=== PATIENT | female | born 1990 | race Caucasian/White ===

== ENCOUNTER 2024-05-09 08:54 | Emergency (ER) | payer BC, SELFPAY ==
[2024-05-09] VITALS (10 sets, daily range): BP systolic 122–140; BP diastolic 85–93; PULSE 68–93; RESP 15–19; TEMP 36.7; O2SAT 99–100
--- NOTE | ~2024-05-09 | US_ITS ---
EXAMINATION: US OB transvaginal DATE: 05/09/2024 10:59 INDICATION: Right lower quadrant abdominal pain. TECHNIQUE: Real-time transvaginal pelvic ultrasound was performed. COMPARISON: None. FINDINGS: The uterus measures 7.1 x 3.5 x 4.6 cm. There is no visible intrauterine gestational sac. The endomet rial complex measures 8 mm in thickness. The right ovary measures 3.2 x 1.7 x 2.2 cm. The left ovary measures 3.2 x 1.5 x 1.7 cm. There is normal vascular flow in the ovaries. There is trace free fluid in the pelvis. IMPRESSION: 1. No visible intrauterine gestational sac, which may be normal in early . Ectopic pregnanc y and spontaneous are not excluded. Correlate with serial beta-hCGs. Reviewed, dictated and finalized at location A. IMPRESSION: 1. No visible intrauterine gestational sac, which may be normal in early pregn bharti. Ectopic and spontaneous are not excluded. Correlate wi th serial beta-hCGs.
--- NOTE | ~2024-05-09 | CT_ITS ---
EXAMINATION: CT abdomen pelvis w con DATE: 05/09/2024 13:22 INDICATION: Right lower quadrant abdominal pain. TECHNIQUE: Computed tomography (CT) of the abdomen and pelvis was performed with 100 mL Omnipaque 350 intravenous contrast. Automated exposure control and iterative reconstruction technique were employe d. The dose-length product was 342.27 mGy-cm. COMPARISON: Ultrasound 05/09/2024 FINDINGS: The visualized portions of the lung bases are clear without pneumonia or pleural effusion. The heart size is normal. No pericardial effusion. The liver, gallbladder, spleen, pancreas, adrenal glands, and kidneys are normal. There are no dilated loops of bowel. The appendix is normal. There ar e no pathologically enlarged lymph nodes. There is physiologic fluid in the pelvis. The ovaries are n ormal. There is mild lumbar spondylosis. IMPRESSION: 1. No etiology for the patient's symptoms. Reviewed, dictated and finalized at location A.
[2024-05-09 09:58] LABS: Basophils Absolute Auto 0.1 K/mm3 (0.0-0.1); Eosinophils Absolute Auto 0.1 K/mm3 (0-0.3); Eosinophils Percent Auto 0.8 % (0-4.4); Hemoglobin 13.7 g/dL (12.0-15.0); Immature Granulocyte Absolute 0.03 K/mm3 (0.00-0.031); Immature Granulocyte Percent A 0.3 % (0-0.5); Lymphocytes Absolute Auto 2.02 K/mm3 (0.9-3.2); Lymphocytes Percent Auto 23.1 % (18.3-44.2); Mean Corpuscular HGB Conc 35.1 g/dl (32-36); Mean Corpuscular Hemoglobin 29.3 pg (26-34); Mean Corpuscular Volume 83.5 fl (80-100); Mean Platelet Volume 10.8 fl (7.4-10.4); Monocytes Absolute Auto 0.7 K/mm3 (0.1-0.6); Monocytes Percent Auto 8.1 % (2.6-8.5); Neutrophils Absolute Auto 5.8 K/mm3 (1.3-6.7); Neutrophils Percent Auto 66.7 % (45.5-73.1); Platelet Count Result 236 k/mm3 (150-375); Red Blood Count 4.67 M/mm3 (4.2-5.4); Red Cell Distribution Width 11.9 % (11.5-14.5); White Blood Count 8.8 K/mm3 (4.5-10.0)
[2024-05-09] MEDS: SODIUM CHLORIDE 0.9% IV 2,500 ML 999 ML IV CONT (10:13)
[2024-05-09 10:32] LABS: Alanine Aminotransferase 26 U/L (6-35); Albumin Level 4.6 g/dL (3.5-5.1); Alkaline Phosphatase 37 U/L (38-126); Anion Gap 11 mmol/L (4-12); Aspartate Amino Transferase 30 U/L (14-36); Bilirubin,Total 0.6 mg/dL (0.2-1.3); Blood Urea Nitrogen 8 mg/dL (7-17); Calcium 8.9 mg/dL (8.4-10.2); Carbon Dioxide 22 mmol/L (22-30); Chloride 104 mmol/L (98-107); Estimated CRCL calculation 124 ml/min; Estimated Glomerular Filt Rate > 60; Glucose 93 mg/dL (65-110); Lipase 62 U/L (23-300); Potassium 3.8 mmol/L (3.4-5.0); Sodium 137 mmol/L (137-145)
[2024-05-09 10:57] LABS: BEDSIDEPREGUCG Positive (Negative)
[2024-05-09 11:05] LABS: Add Urine Microscopic? YES; Appearance Urine Clear (Clear); Bacteria Urine None Seen /hpf; Bilirubin Urine Negative (Negative); Blood Urine 1+ (Negative); Color Urine Yellow (Yellow); Glucose Urine UA Negative (Negative); Ketones Urine Negative (Negative); Leukocyte Esterase Ur Negative LEU/UL (Negative); Nitrate Urine Negative (Negative); Non Pathogenic Casts 0-2; Protein Urine Negative (Negative); RBC Urine 0-2 /hpf (0-2); Specific Grav Ur 1.004 (1.001-1.035); Squamous Epithelial Cell Urine None Seen /hpf (Few); Urobilinogen Urine 0.2 mg/dL (<2.0); WBC Urine 0-5 /hpf (0-3); pH Urine 7.5 (5.0-9.0)
[2024-05-09 11:56] LABS: Beta HCG Quantitative 211.73 mIU/ML
--- NOTE | 2024-05-09 13:48 | ED.GENADULT ---
HPI - General Adult General Chief complaint: Abdominal Pain Stated complaint: RLQ pain, 6 weeks preg Time Seen by Provider: 05/09/24 09:26 History of Present Illness HPI narrative: This is a 34-year-old female at approximately 6 weeks gestation presenting for possible ectopic. Patient had been trending her HCGs with an outside OBGYN and they were not progressing as expected. There were 150->180. Progesterone has been trending downward. Today the patient developed pain in the right lower quadrant. This also did with dizziness and tunnel vision. She was instructed to come to the ED for evaluation at that time. Patient notes she has been having vaginal bleeding for the last week about 1 pad per day. No other complaints at this time. OBGYN is Dr. Orozco Related Data Allergies Allergy/AdvReac Type Severity Reaction Status Date / Time No Known Allergies Allergy Verified 05/09/24 09:12 Exam Narrative: APPEARANCE: No apparent distress. Head: atraumatic. EYES: EOMI, NOSE: Atraumatic NECK: Trachea midline RESPIRATORY: No increased rate of breathing clear to auscultation CARDIOVASCULAR: RRR, ABDOMINAL: Tenderness palpation in the right lower quadrant, no guarding or rebound MUSCULOSKELETAl: No obvious deformities NEURO: Alert. Moving 4/4 extremities SKIN:: Warm, dry. Normal color PSYCHIATRIC: Normal affect Course Vital Signs Vital signs: Vital Signs Temperature 98.1 F 05/09/24 09:13 Pulse Rate 93 05/09/24 09:13 Respiratory Rate 15 05/09/24 09:13 Blood Pressure 133/93 H 05/09/24 09:13 Pulse Oximetry 100 05/09/24 09:13 Oxygen Delivery Room Air 05/09/24 09:13 Temperature 98.1 F 05/09/24 09:13 Pulse Rate 74 05/09/24 12:35 Respiratory Rate 18 05/09/24 12:35 Blood Pressure 140/88 05/09/24 11:30 Pulse Oximetry 100 05/09/24 12:35 Oxygen Delivery Room Air 05/09/24 09:13 Medical Decision Making [facility] Narrative Medical decision making narrative: -Course: 34-year-old female presenting at 6 weeks gestation with concerns for ectopic . Point of care OB ultrasound showed trace pelvic fluid. Patient given fluid resuscitation while waiting official ultrasound. Official ultrasound showed intrauterine fetus or any signs of ectopic. On re-evaluation patient is still very concerned is warp tying machine tender in the right lower quadrant. CT abdomen pelvis ordered to evaluate for other causes of right lower quadrant pain or non fallopian ectopic. CT was unremarkable. On re-evaluation vital signs have normalized. I discussed return precautions with the patient and she will follow-up with her OBGYN on Saturday. -DDX includes but is not limited to: Ectopic , appendicitis, non fallopian ectopic -Independent interpretation of studies: 150 -> 185 05/07-> 211 05/09 Imaging reviewed -Discussion of Management/Consultants:Dr. [facility] -Interventions: 2.5 L normal saline, 0.5 mg Dilaudid -Shared decision making / Disposition: Discharged -RX Motrin, Tylenol Vital Signs Vital Signs: Vital Signs Temperature 98.1 F 05/09/24 09:13 Pulse Rate 93 05/09/24 09:13 Respiratory Rate 15 05/09/24 09:13 Blood Pressure 133/93 H 05/09/24 09:13 Pulse Oximetry 100 05/09/24 09:13 Oxygen Delivery Room Air 05/09/24 09:13 Temperature 98.1 F 05/09/24 09:13 Pulse Rate 74 05/09/24 12:35 Respiratory Rate 18 05/09/24 12:35 Blood Pressure 140/88 05/09/24 11:30 Pulse Oximetry 100 05/09/24 12:35 Oxygen Delivery Room Air 05/09/24 09:13 Lab Data 05/09/24 09:44 05/09/24 09:44 Labs: Lab Results 05/09/24 05/09/24 05/09/24 Range/Units 09:44 10:53 10:54 WBC 8.8 (4.5-10.0) K/mm3 RBC 4.67 (4.2-5.4) M/mm3 Hgb 13.7 (12.0-15.0) g/dL Hct 39.0 (37.0-47.0) % MCV 83.5 (80-100) fl MCH 29.3 (26-34) pg MCHC 35.1 (32-36) g/dl RDW 11.9 (11.5-14.5) % Plt Count 236 (150-375) k/mm3
== END 2024-05-09 14:32 | disposition home or self-care (01) ==
PROVIDERS: Emergency Provider Emergency Medicine; PCP Internal Medicine Infectious Disease
DX: O00.90 Unspecified ectopic pregnancy without intrauterine pregnancy (principal)
CPT/HCPCS: 36415; 74177; 76817; 80053; 81001; 81025; 83690; 84702; 85025; 96360; 99284; J7030; Q9967